=== PATIENT | male | born 1980 | race Caucasian/White ===

== ENCOUNTER 2017-07-31 23:16 | Emergency (ER) | payer OTHER ==
[~2017-07-31] VITALS: Ht 182.9 cm; Wt 90.7 kg
[2017-07-31] MEDS ORDERED: FLUORESCEIN 1MG EYE STRIP. ONE (23:51)
[2017-08-01] MEDS ORDERED: PROPARACAINE 0.5% OPHTH SOLUTION 15ML BOTTLE. OU ONE (00:15)
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
[2017-08-01] MEDS ORDERED: TETRACAINE 0.5% OPHTH SOLUTION 4ML BOTTLE. OU ONE (00:45)
[2017-08-01] MEDS ORDERED: FLUORESCEIN 1MG EYE STRIP. OU ONE (01:00)
[2017-08-01] MEDS ORDERED: KETOROLAC 60 MG/2 ML VIAL. IM ONE (01:15)
[2017-08-01] MEDS ORDERED: HYDR-965 PO (01:25)
[2017-08-01 01:28] VITALS: BP 132/82
[2017-08-01] MEDS ORDERED: ERYTHROMYCIN 0.5% OPHTH OINTMENT 1GM TUBE. ONE (01:29)
== END 2017-08-01 01:30 | disposition home or self-care (01) ==
LOC: ER 23:16
DX: H16.133 Photokeratitis, bilateral (principal); S05.02XA Injury of conjunctiva and corneal abrasion without foreign body, left eye, initial encounter; S05.01XA Injury of conjunctiva and corneal abrasion without foreign body, right eye, initial encounter; T75.09XA Other effects of lightning, initial encounter; Y93.89 Activity, other specified; Y99.8 Other external cause status; Y92.89 Other specified places as the place of occurrence of the external cause
CPT/HCPCS: 96372; 99283; J1885